=== PATIENT | male | born 1950 | race Two or more races ===

== ENCOUNTER 2024-08-02 10:15 | Inpatient (IN) | payer OTHER, MEDICARE, MEDICAID ==
[~2024-08-02] VITALS: Ht 167.6 cm; Wt 68.0 kg
[2024-08-02 10:17] VITALS: O2SAT 98
[2024-08-02 10:59] LABS: HEMATOCRIT. 46.7 % (42.0-52.0); HEMOGLOBIN. 15.1 g/dL (14.0-18.0); MEAN CORPUSCULAR HEMOGLOBIN 29.4 pg (28.0-32.0); MEAN CORPUSCULAR HGB CONC 32.2 g/dL (31.0-37.0); MEAN CORPUSCULAR VOLUME 91.2 fL (80.0-94.0); MEAN PLATELET VOLUME 7.2 fl (7.4-10.4); PLATELET 416 x1000/uL (130-400); RED BLOOD CELL COUNT 5.12 mill/uL (4.7-6.1); WHITE BLOOD COUNT 14.7 x1000/uL (4.5-11.0)
[2024-08-02 11:02] LABS: DIFFERENTIAL COMMENT 1
[2024-08-02 11:11] LABS: CHLORIDE 101 mEq/L (98-107); POTASSIUM 3.4 mEq/L (3.5-5.1); SODIUM 136 mEq/L (136-145)
[2024-08-02 11:12] LABS: CARBON DIOXIDE 22 mEq/L (21-32)
[2024-08-02 11:13] LABS: CALCIUM 9.2 mg/dL (8.7-10.4)
[2024-08-02 11:17] LABS: CREATININE 0.6 mg/dL (0.6-1.3); GLUCOSE 97 mg/dL (70-105)
[2024-08-02 11:18] LABS: UREA NITROGEN BLOOD 23 mg/dL (9-23)
[2024-08-02 11:19] LABS: TROPONIN I HIGH SENSITIVITY 7 ng/L (3.0-53)
[2024-08-02] MEDS ORDERED: ACETAMINOPHEN 325MG TABLET PO PRN ×2 (12:00)
[2024-08-02] MEDS ORDERED: DOCUSATE SODIUM 100MG CAPSULE PO PRN (12:00)
[2024-08-02] MEDS ORDERED: MAGNESIUM/ALUMINUM HYDROXIDE/SIMETHICONE 30ML UDC PO PRN (12:00)
[2024-08-02] MEDS ORDERED: IPRATROPIUM/ALBUTEROL 0.5-3(2.5)MG/3ML NEB HHN PRN (12:00)
[2024-08-02] MEDS ORDERED: CLONIDINE 0.1MG TABLET PO PRN (12:00)
[2024-08-02] MEDS ORDERED: ONDANSETRON HCL 4MG/2ML INJ IV PRN (12:00)
[2024-08-02 12:25] LABS: PLATELET ESTIMATE INCREASED
[2024-08-02 12:55] LABS: PHOSPHORUS 2.6 mg/dL (2.5-4.9)
[2024-08-02] MEDS: POTASSIUM CHLORIDE 20MEQ TABLET SR PO SCH (12:56)
[2024-08-02] MEDS: SODIUM CHLORIDE 0.9% 1,000 ML IV SCH (12:56)
[2024-08-02 12:57] LABS: T4 FREE 1.28 ng/dL (0.89-1.76)
[2024-08-02] MEDS: ENOXAPARIN 40MG/0.4ML SYR SUBCUT SCH (12:57)
[2024-08-02 12:58] LABS: THYROID STIMULATING HORMONE 0.44 uIU/mL (0.55-4.78)
[2024-08-02 13:20] LABS: ETHANOL BLOOD < 10 mg/dL (<10)
[2024-08-02] MEDS ORDERED: KETOROLAC 15MG/ML VIAL IV PRN (14:30)
[2024-08-02 17:00] VITALS: BP 108/46; PULSE 73; RESP 18; TEMP 36.3
[2024-08-02 17:49] LABS: ALANINE AMINOTRANSFERASE 79 IU/L (10-49); ALBUMIN 3.6 g/dL (3.2-4.8); ASPARTATE AMINOTRANSFERASE 131 IU/L (<34); BILIRUBIN DIRECT 0.5 mg/dL (<=3.0); PROTEIN TOTAL 6.2 g/dL (6.0-8.3)
[2024-08-02 18:04] LABS: HEPATITIS B SURFACE ANTIGEN NEGATIVE (Negative)
[2024-08-02 18:25] LABS: HEPATITIS A AB IGM NEGATIVE (Negative); HEPATITIS B CORE AB IGM NEGATIVE (Negative)
[2024-08-02] MEDS ORDERED: LEVE500T19 (18:46)
[2024-08-02 19:13] LABS: HEPATITIS C AB EQUIVICOL (Negative)
[2024-08-02 20:00] VITALS: BP 101/43; PULSE 72; RESP 18; TEMP 36.9; O2SAT 97
[2024-08-02 21:06] LABS: TROPONIN I HIGH SENSITIVITY 14 ng/L (3.0-53)
[2024-08-02] MEDS ORDERED: INFLUENZA VACCINE 05/PF 0.5 ML SYRINGE IM ONE (21:15)
[2024-08-02 21:18] LABS: CREATINE KINASE 1950 IU/L (46-171)
[2024-08-02] MEDS ORDERED: PNEUMOCOCCAL 20-VAL CONJ-DIP CRM 0.5ML IM ONE (21:30)
[2024-08-03] VITALS (7 sets, daily range): BP systolic 103–112; BP diastolic 38–51; PULSE 56–75; RESP 18–20; TEMP 36.2–37.1; O2SAT 94–100
[2024-08-03 00:34] LABS: TROPONIN I HIGH SENSITIVITY 13 ng/L (3.0-53)
[2024-08-03 00:45] LABS: CREATINE KINASE 1747 IU/L (46-171)
[2024-08-03 07:14] LABS: CHLORIDE 106 mEq/L (98-107); POTASSIUM 3.7 mEq/L (3.5-5.1); SODIUM 138 mEq/L (136-145)
[2024-08-03 07:15] LABS: CARBON DIOXIDE 25 mEq/L (21-32)
[2024-08-03 07:16] LABS: CALCIUM 8.3 mg/dL (8.7-10.4)
[2024-08-03 07:20] LABS: CREATININE 0.5 mg/dL (0.6-1.3); GLUCOSE 84 mg/dL (70-105)
[2024-08-03 07:21] LABS: UREA NITROGEN BLOOD 16 mg/dL (9-23)
[2024-08-03 07:25] LABS: HEMATOCRIT 38.8 % (42.0-52.0); HEMOGLOBIN 12.9 g/dL (14.0-18.0); MEAN CORPUSCULAR HEMOGLOBIN 29.8 pg (28.0-32.0); MEAN CORPUSCULAR HGB CONC 33.1 g/dL (31.0-37.0); MEAN CORPUSCULAR VOLUME 89.8 fL (80.0-94.0); PLATELET 372 x1000/uL (130-400); RED BLOOD CELL COUNT 4.32 mill/uL (4.7-6.1); RED CELL DISTRIBUTION WIDTH 13.8 % (11.6-14.6); WHITE BLOOD COUNT 8.7 x1000/uL (4.5-11.0)
[2024-08-03 17:36] LABS: CLARITY URINE CLEAR (CLEAR); COLOR URINE YELLOW (YELLOW); GLUCOSE URINE NEGATIVE (NEGATIVE); KETONES URINE TRACE (NEGATIVE); LEUKOCYTE ESTERASE URINE 3+ (NEGATIVE); NITRITE URINE POSITIVE (NEGATIVE); OCCULT BLOOD URINE TRACE (NEGATIVE); PROTEIN URINE TRACE (NEGATIVE); SPECIFIC GRAVITY URINE 1.024 (1.005-1.030)
[2024-08-03 17:56] LABS: *AMPHETAMINES SCREEN URINE NEGATIVE (NEGATIVE); *BARBITURATES SCREEN URINE NEGATIVE (NEGATIVE); *BENZODIAZEPINES SCREEN URINE NEGATIVE (NEGATIVE); *COCAINE SCREEN URINE NEGATIVE (NEGATIVE); CANNABINOID URINE SCREEN NEGATIVE (NEGATIVE); METHADONE URINE SCREEN NEGATIVE (NEGATIVE); OPIATES URINE SCREEN NEGATIVE (NEGATIVE); PHENCYCLIDINE URINE SCREEN NEGATIVE (NEGATIVE)
[2024-08-03 17:57] LABS: ECSTASY MDMA SCREEN URINE NEGATIVE (NEGATIVE)
[2024-08-03 18:27] LABS: WBC URINE 50-100 /hpf (0-2)
[2024-08-03 18:28] LABS: BACTERIA URINE 3+; RBC URINE 0-2 /hpf (0-2); SQUAMOUS EPITHELIAL CELL URINE FEW /lpf (RARE/1+)
[2024-08-03] MEDS: CEFTRIAXONE 1GM/50ML 50 ML IV SCH (21:07)
[2024-08-04 03:56] VITALS: BP 115/51; PULSE 71; RESP 18; TEMP 37.4; O2SAT 98
[2024-08-04 08:10] VITALS: BP 119/66; PULSE 61; RESP 20; TEMP 36.7; O2SAT 97
[2024-08-04 11:45] VITALS: BP 124/59; PULSE 62; RESP 18; TEMP 36.4; O2SAT 99
[2024-08-04 16:00] VITALS: BP 134/63; PULSE 62; RESP 19; TEMP 36.6; O2SAT 98
[2024-08-04 20:00] VITALS: BP 118/61; PULSE 65; RESP 20; TEMP 36.7; O2SAT 97
[2024-08-05] VITALS: BP 124/62; PULSE 69; RESP 20; TEMP 36.9; O2SAT 98
[2024-08-05 04:00] VITALS: BP 124/72; PULSE 68; RESP 20; TEMP 36.9; O2SAT 98
[2024-08-05 06:19] LABS: CALCIUM 8.6 mg/dL (8.7-10.4); CARBON DIOXIDE 29 mEq/L (21-32); CHLORIDE 100 mEq/L (98-107); POTASSIUM 3.9 mEq/L (3.5-5.1); SODIUM 136 mEq/L (136-145)
[2024-08-05 06:24] LABS: CREATININE 0.5 mg/dL (0.6-1.3); GLUCOSE 89 mg/dL (70-105)
[2024-08-05 06:25] LABS: UREA NITROGEN BLOOD 8 mg/dL (9-23)
[2024-08-05 06:26] LABS: CREATINE KINASE 356 IU/L (46-171)
[2024-08-05 06:27] LABS: PHOSPHORUS 2.7 mg/dL (2.5-4.9)
[2024-08-05 06:37] LABS: BASOPHILS % 0.3 % (0.0-2.0); EOSINOPHILS % 1.3 % (0.0-5.0); HEMATOCRIT. 41.7 % (42.0-52.0); LYMPHOCYTES % 17.2 % (20.0-50.0); MEAN CORPUSCULAR HEMOGLOBIN 29.9 pg (28.0-32.0); MEAN CORPUSCULAR HGB CONC 33.4 g/dL (31.0-37.0); MEAN CORPUSCULAR VOLUME 89.2 fL (80.0-94.0); MEAN PLATELET VOLUME 7.1 fl (7.4-10.4); MONOCYTES % 9.6 % (2.0-8.0); NEUTROPHILS % 71.6 % (40.0-76.0); PLATELET 424 x1000/uL (130-400); RED BLOOD CELL COUNT 4.68 mill/uL (4.7-6.1); RED CELL DISTRIBUTION WIDTH 13.5 % (11.6-14.6); WHITE BLOOD COUNT 7.2 x1000/uL (4.5-11.0)
[2024-08-05 08:00] VITALS: BP 104/84; PULSE 63; RESP 18; TEMP 36.7; O2SAT 98
== END 2024-08-05 11:40 | disposition left against medical advice (07) | DRG 605 ==
LOC: ER 10:15 → 7WST 11:47 → EDBEDREQ 11:49 → EDBEDREQTM 11:49
PROVIDERS: ADMIT Internal Medicine; ATTEND Internal Medicine
DX: S01.81XA Laceration without foreign body of other part of head, initial encounter (principal); Z59.00 Homelessness unspecified; R55 Syncope and collapse; E87.6 Hypokalemia; D72.829 Elevated white blood cell count, unspecified; D75.839 Thrombocytosis, unspecified; G90.89 Other disorders of autonomic nervous system; S41.112A Laceration without foreign body of left upper arm, initial encounter; Z53.29 Procedure and treatment not carried out because of patient's decision for other reasons; S41.111A Laceration without foreign body of right upper arm, initial encounter; R58 Hemorrhage, not elsewhere classified; S41.119A Laceration without foreign body of unspecified upper arm, initial encounter; R25.1 Tremor, unspecified; F17.210 Nicotine dependence, cigarettes, uncomplicated; W01.0XXA Fall on same level from slipping, tripping and stumbling without subsequent striking against object, initial encounter; Y93.89 Activity, other specified; Y92.89 Other specified places as the place of occurrence of the external cause; Y99.8 Other external cause status
CPT/HCPCS: 36415; 71045; 73560; 80048; 80076; 80305; 80320; 81003; 82550; 83036; 83605; 83735; 83880; 84100; 84145; 84439; 84443; 84484; 85025; 85027; 86705; 86709; 87077; 87186; 87340; 93005; 93306; 93970; 97162; 97166; 97535; 99285; A4606; J0696; J1650; J2405; G0480